=== PATIENT | female | born 1970 | race Caucasian/White ===

== ENCOUNTER 2019-03-18 10:43 | Emergency (ER) | payer BC, OTHER ==
[~2019-03-18] VITALS: Ht 172.7 cm; Wt 78.9 kg
[2019-03-18] MEDS ORDERED: CLEOCIN HCL150 MG PO (11:11)
[2019-03-18 12:19] VITALS: BP 146/88
== END 2019-03-18 12:19 | disposition home or self-care (01) ==
LOC: ER 10:43
DX: S61.210A Laceration without foreign body of right index finger without damage to nail, initial encounter (principal); Z88.0 Allergy status to penicillin; Z88.2 Allergy status to sulfonamides; W27.8XXA Contact with other nonpowered hand tool, initial encounter; Y93.89 Activity, other specified; Y92.89 Other specified places as the place of occurrence of the external cause; Y99.9 Unspecified external cause status

== ENCOUNTER → 2020-07-03 | Outpatient (CLI) | payer BC, OTHER ==
[~2020-07-03] MED LIST: CLEOCIN HCL150 MG PO
== END ==
LOC: RAD 10:29
PROVIDERS: ATTEND Family Medicine
DX: R07.9 Chest pain, unspecified (principal)

== ENCOUNTER → 2020-09-05 | Outpatient (CLI) | payer OTHER | LOC: CAT 08:43 | PROVIDERS: ATTEND Family Medicine | DX: Z13.6 Encounter for screening for cardiovascular disorders (principal) ==